=== PATIENT | female | born 1955 | race Caucasian/White ===

== ENCOUNTER 2024-05-29 06:09 | Day surgery (SDC) | payer MEDICARE, OTHER, SELFPAY ==
--- NOTE | 2024-05-28 11:27 | PTCARENOTE ---
Surgeon requested anesthesia consult patient preop- spoke with Brenda Madrigal- HONG regarding request. Brenda stated she has spoken with both the patient as well as anesthesiologist. Stated Anesthesia will also speak with patient morning of
procedure.
[2024-05-29 09:25] VITALS: BP 186/94
[2024-05-29 09:29] VITALS: BMI 39.0
[2024-05-29] MEDS: MOBIC 15 MG PO (09:35)
[2024-05-29 09:36] VITALS: BMI 39.0
[2024-05-29 10:48] VITALS: BP 203/80
[2024-05-29 10:50] VITALS: BP 198/82
[2024-05-29 11:00] VITALS: BP 215/78
[2024-05-29 11:15] VITALS: BP 180/75
== END 2024-05-29 11:42 | disposition home or self-care (01) ==
LOC: SDS 06:09
PROVIDERS: ATTENDING PHYSICIAN Orthopaedic Surgery Hand Surgery
DX: S52.571A Other intraarticular fracture of lower end of right radius, initial encounter for closed fracture (principal); W19.XXXA Unspecified fall, initial encounter; Y93.E9 Activity, other interior property and clothing maintenance
CPT/HCPCS: 25609; C1713